=== PATIENT | female | born 1965 ===

== ENCOUNTER 2017-12-22 01:32 | Emergency (ER) | payer OTHER ==
[2017-12-22] MEDS ORDERED: Albuterol-Ipratrop 3 mg / 0.5 (3 ml) UD INH STA ×3 (02:10)
[2017-12-22 02:54] LABS: BASO % 0.5 % (0.0-2.0); EOS # 0.2 K/uL (0.0-0.7); EOS % 2.2 % (0.0-4.0); HEMOGLOBIN 11.6 g/dL (12.0-16.0); LYMPH # 1.3 K/uL (1.0-4.3); MEAN CELL VOLUME 75.9 fl (81.0-99.0); MEAN CORPUSCULAR HEMOGLOBIN 24.9 pg (27.0-31.0); MEAN CORPUSCULAR HGB CONC 32.8 g/dL (33.0-37.0); MEAN PLATELET VOLUME 8.1 fl (7.2-11.7); MONO # 0.6 K/uL (0.0-0.8); MONO % 5.5 % (0.0-10.0); NEUT # 7.8 K/uL (1.8-7.0); NEUT % 78.8 % (50.0-75.0); RBC 4.67 Mil/uL (3.80-5.20); RED CELL DISTRIBUTION WIDTH 16.7 % (11.5-14.5)
[2017-12-22 02:58] LABS: BLOOD UREA NITROGEN 13 mg/dl (7-17); CALCIUM 9.2 mg/dL (8.4-10.2); GFR AFRICAN-AMERICAN > 60; GFR NON-AFRICAN AMERICAN 58
[2017-12-22 03:10] LABS: B-TYPE NATRIURETIC PEPTIDE 43.8 pg/ml (0-900)
--- NOTE | 2017-12-22 03:25 | ED PDOC ---
HPI: SOB/CHF/COPD Time Seen by Provider: 12/22/17 01:49 Chief Complaint (Nursing): Shortness Of Breath Chief Complaint (Provider): Difficulty Breathing History Per: Patient History/Exam Limitations: no limitations Onset/Duration Of Symptoms: Days (3x) Current Symptoms Are (Timing): Still Present Associated Symptoms: Ankle/Leg Swelling (bilateral lower). denies: Fever, Chest Pain Additional Complaint(s): 52 year old female with a past medical history of asthma and hypothyroidism presents to the ED complaining of difficulty breathing and shortness of breath onset three days ago with associated symptoms of cough and wheezing. She also reports of bilateral lower leg swelling. She used her nebulizer and pump and stated it did not provide any relief. Denies chest pain or fever. PMD: Non [facility] Provider Past Medical History Reviewed: Historical Data, Nursing Documentation, Vital Signs Vital Signs: Last Vital Signs Temp 98.3 F 12/22/17 04:03 Pulse 94 H 12/22/17 04:03 Resp 12 12/22/17 04:03 BP 154/82 H 12/22/17 04:03 Pulse Ox 97 12/22/17 04:03 - Medical History PMH: Anemia, Asthma, HTN, Hypothyroidism Denies: HIV, Chronic Kidney Disease - Surgical History Surgical History: Cholecystectomy, (2) - Family History Family History: States: Diabetes, Hypertension - Social History Current smoker - smoking cessation education provided: No Alcohol: None Drugs: Denies - Home Medications Home Medications: Ambulatory Orders Medication Instructions Recorded Lisinopril [Zestril] 5 mg PO DAILY 06/10/16 Levothyroxine [Synthroid] 25 mcg PO DAILY #0 06/12/16 Albuterol HFA [Ventolin HFA 90 2 puff INH Q4 PRN #1 inhaler 12/22/17 mcg/actuation (8 g)] Fluticasone/Salmeterol 250/50 1 puff IH Q12 #1 puff 12/22/17 [Advair Diskus] Montelukast [Singulair] 10 mg PO DAILY 12/22/17 Prednisone [Deltasone] 60 mg PO DAILY 5 Days tablet 12/22/17 - Allergies Allergies/Adverse Reactions: Allergies Allergy/AdvReac Type Severity Reaction Status Date / Time Penicillins Allergy RASH Verified 06/10/16 14:41 Review of Systems ROS Statement: Except As Marked, All Systems Reviewed And Found Negative Constitutional: Negative for: Fever Cardiovascular: Negative for: Chest Pain Respiratory: Positive for: Cough, Shortness of Breath (difficulty breathing ), Wheezing Musculoskeletal: Positive for: Leg Pain (bilateral lower leg swelling) Physical Exam - Reviewed Nursing Documentation Reviewed: Yes Vital Signs Reviewed: Yes - Physical Exam Appears: Positive for: Well, Non-toxic, No Acute Distress Head Exam: Positive for: ATRAUMATIC, NORMAL INSPECTION, NORMOCEPHALIC Skin: Positive for: Normal Color, Warm, Dry Eye Exam: Positive for: EOMI, Normal appearance, PERRL ENT: Positive for: Normal ENT Inspection Neck: Positive for: Normal, Painless ROM, Supple. Negative for: Decreased ROM, Limited ROM Cardiovascular/Chest: Positive for: Regular Rate, Rhythm. Negative for: Murmur Respiratory: Positive for: Decreased Breath Sounds, Wheezing Gastrointestinal/Abdominal: Positive for: Normal Exam, Bowel Sounds, Soft. Negative for: Tenderness, Guarding, Rebound Back: Positive for: Normal Inspection. Negative for: L CVA Tenderness, R CVA Tenderness Extremity: Positive for: Normal ROM. Negative for: Tenderness, Deformity Neurologic/Psych: Positive for: Alert, Oriented (x3), Gait - Laboratory Results Result Diagrams: 12/22/17 02:41 12/22/17 02:41 - ECG ECG: Positive for: Interpreted By Me, Viewed By Me ECG Rhythm: Positive for: Normal QRS, Normal ST Segment, Sinus Rhythm. Negative for: ST/T Changes Rate: 88 O2 Sat by Pulse Oximetry: 98 (RA) Pulse Ox Interpretation: Normal - Radiology X-Ray: Interpreted by Me, Viewed By Me X-Ray Interpretation: No Acute Disease - Progress Re-evaluation Time: 04:51 Condition: Re-examined, Improved Medical Decision Making Medical Decision Making: Time: 02:09 Initial Impression: Exacerbation Differential Diagnosis includes but is not limited to: CHF Initial Plan: --EKG --B-Type Natriuretic Peptide --BMP --Magnesium --TSH --Troponin I --CBC w/ differential --Chest X-ray --Albuterol/Ipratropium 3ml INH --SOLU-Medrol 125mg --Peak Flow Pre/Post TX --Reevaluation Scribe Attestation: Documented by Veronica Omer, acting as a scribe for Vini Vasquez MD Provider Scribe Attestation: All medical record entries made by the Scribe were at my direction and personally dictated by me. I have reviewed the chart and agree that the record accurately reflects my personal performance of the history, physical exam, medical decision making, and the department course for this patient. I have also personally directed, reviewed, and agree with the discharge instructions and disposition. Disposition - Clinical Impression Clinical Impression: Asthma attack - Patient ED Disposition Is Patient to be Admitted: No Doctor Will See Patient In The: Office Counseled Patient/Family Regarding: Studies Performed, Diagnosis, Need For Followup - Disposition Referrals: [facility] [Outside] Disposition: Routine/Home Disposition Time: 04:52 Condition: GOOD Additional Instructions: Follow up with your PCP in 2-3 days. Take your medications as instructed. Return for worsening. Prescriptions: Albuterol HFA [Ventolin HFA 90 mcg/actuation (8 g)] 2 puff INH Q4 PRN #1 inhaler PRN Reason: Shortness Of Breath Fluticasone/Salmeterol 250/50 [Advair Diskus] 1 puff IH Q12 #1 puff Prednisone [Deltasone] 60 mg PO DAILY 5 Days tablet Instructions: Asthma, Adult (DC)
[2017-12-22 04:04] VITALS: BP 154/82; RESP 12; TEMP 98.3
[2017-12-22 04:55] VITALS: PULSE 88; O2SAT 98
--- NOTE | 2017-12-22 09:46 | RAD ---
PROCEDURE: CHEST RADIOGRAPH, 1 VIEW HISTORY: dyspnea COMPARISON: 06/10/2016 FINDINGS: LUNGS: Clear. PLEURA: No pneumothorax or pleural fluid seen. CARDIOVASCULAR: Normal. OSSEOUS STRUCTURES: Bilateral shoulder arthrosis VISUALIZED UPPER ABDOMEN: Normal. OTHER FINDINGS: None. IMPRESSION: No acute cardiopulmonary pathology appreciated
--- NOTE | 2017-12-22 12:09 | CARD ---
APPROVED REPORT EKG Measurement Heart [id number] ME [id number] <Conclusion> Normal sinus rhythm Possible Left atrial enlargement Nonspecific ST abnormality Abnormal ECG
== END 2017-12-22 05:35 | disposition home or self-care (01) ==
LOC: H.ER 01:32
DX: J45.901 Unspecified asthma with (acute) exacerbation (principal); E03.9 Hypothyroidism, unspecified; I10 Essential (primary) hypertension; Z88.0 Allergy status to penicillin
CPT/HCPCS: 71045; 80048; 83735; 83880; 84443; 84484; 85025; 93005; 94150; 94640; 96374; 99285; J2930